=== PATIENT | female | born 1955 | race Caucasian/White ===

== ENCOUNTER 2024-11-01 13:48 | Emergency (ER) | payer OTHER ==
[~2024-11-01] VITALS: Ht 154.9 cm; Wt 54.4 kg
[2024-11-01 14:05] VITALS: TEMP 98.6
[2024-11-01] MEDS ORDERED: oxyCODONE/APAP (5/325 MG) 1 UDTAB TABLET ONE (14:28)
[2024-11-01] MEDS ORDERED: CYCLOBENZAPRINE 10 MG TABLET ONE (14:29)
[2024-11-01] MEDS: oxyCODONE/APAP (5/325 MG) 1 UDTAB TABLET PO ONE (14:40)
[2024-11-01] MEDS: CYCLOBENZAPRINE 10 MG TABLET PO ONE (14:40)
[2024-11-01] MEDS ORDERED: CYCL5TAB PO (16:29)
[2024-11-01 16:46] VITALS: BP 150/79; O2SAT 97
== END 2024-11-01 16:51 | disposition home or self-care (01) ==
LOC: ER 14:00
DX: R51.9 Headache, unspecified (principal); M54.2 Cervicalgia; M54.50 Low back pain, unspecified; I10 Essential (primary) hypertension; M25.522 Pain in left elbow; Z88.6 Allergy status to analgesic agent; W01.10XA Fall on same level from slipping, tripping and stumbling with subsequent striking against unspecified object, initial encounter; Y93.89 Activity, other specified; Y92.89 Other specified places as the place of occurrence of the external cause; Y99.8 Other external cause status
CPT/HCPCS: 70450-TC; 71045-TC; 72100-TC; 72125-TC; 73080-TC